=== PATIENT | female | born 1935 | race Caucasian/White ===

== ENCOUNTER → 2021-03-02 | Outpatient (CLI) | payer OTHER ==
[~2021-03-02] VITALS: Ht 170.2 cm; Wt 76.2 kg
[~2021-03-02] MED LIST: ALLOPURINOL 10100 M1 PO; ASA81BEC PO; CHOLECALCIFEROL1 GM PO; DICYCLOMINE HCL20 MG PO; FLONASE 0.05%50 MCG NARES; IPRATROPIU0.2 MG/1 M INH; LEXAPRO 10 MG T10 M1 PO; LIPITOR 20 MG T20 M1 PO; NORVASC5 MG PO; PROAIR HFA8.5 GM INH; TYLENOL325 MG PO
[2021-03-02 11:06] VITALS: BP 116/51
[2021-03-02 11:11] LABS: ABSOLUTE NEUTROPHILS 4.2 thou/uL (1.4-8.2); BASOPHILS 0.8 % (0.0-2.0); HEMATOCRIT 41.4 % (37.0-47.0); HEMOGLOBIN 13.8 gm/dL (12.0-15.0); LYMPHOCYTES 16.7 % (24.0-44.0); MCH 30.7 pg (26.0-34.0); MCHC 33.2 g/dL (28.0-37.0); MCV 92.3 fL (80.0-100.0); MONOCYTES 9.1 % (1.0-8.0); PLATELET COUNT 230 thou/uL (150-400); POLYS 71.4 % (36.0-66.0); RBC 4.48 mil/uL (4.20-5.00); RDW 13.4 % (10.5-14.5); WBC 5.9 thou/uL (4.0-11.0)
--- NOTE | 2021-03-02 14:13 | NUR ---
PT RETURNED TO ROOM 4 FROM IR. TOLERATED PROCEDURE WITHOUT COMPLICATIONS. AWAKE AND ALERT. VSS.
== END | disposition home or self-care (01) ==
LOC: CATH 09:19 → SJCVC 09:19
PROVIDERS: ATTEND Nuclear Medicine Nuclear Cardiology
DX: M80.08XA Age-related osteoporosis with current pathological fracture, vertebra(e), initial encounter for fracture (principal); M54.59 Other low back pain; E78.5 Hyperlipidemia, unspecified; Z98.890 Other specified postprocedural states; Z79.899 Other long term (current) drug therapy; Z90.49 Acquired absence of other specified parts of digestive tract; Z90.710 Acquired absence of both cervix and uterus